=== PATIENT | female | born 1990 | race Caucasian/White ===

== ENCOUNTER 2016-05-20 06:18 | Inpatient (IN) ==
[2016-05-20] MEDS ORDERED: PROPOFOL 1,000 MG/100 ML BOTTLE IV ONE (06:32)
[2016-05-20] MEDS: PROPOFOL 1,000 MG/100 ML BOTTLE IV SCH ×5 (06:40→21:15)
[2016-05-20 06:42] LABS: ABG Base Excess -0.7 MMOL/L (-2.5-2.5); ABG HCO3 23.9 MMOL/L (20-26); ABG Oxygen Saturation 99.8 % (95-100); ABG PCO2 38.3 MM HG (35-48); ABG PH 7.402 (7.35-7.45); ABG TCO2 20.9 MMOL/L (23-27)
--- NOTE | 2016-05-20 06:57 | XRay Report ---
Exam: XR chest 1V portable Date: 05/20/2016 6:32 AM Indication: Line placement Comparison: 05/20/2016 Findings: Nasogastric tube has been placed in the stomach. Endotracheal tube is at the level of the mid clavicle. Heart is normal in size. Minimal bibasilar atelectatic change present and tiny effusions. No pneumothorax. Mediastinum is unremarkable. Impression: 1. Interval placement endotracheal tube and nasogastric tube in good position 2. Minimal bibasilar atelectatic change and tiny effusions 3. No pneumothorax PROCEDURE INTERPRETED AT [facility] DEPARTMENT OF RADIOLOGY Final Report Signed by: Dr. Reji Montana
[2016-05-20] MEDS ORDERED: ONDANSETRON 4 MG/2 ML VIAL IV PRN (07:01)
--- NOTE | 2016-05-20 07:45 | Hospitalist History & Physical ---
Assessment and Plan - Time spent with patient Time spent with patient: Greater than 30 minutes (due to assessment, plan and documentation) (1) Suicide attempt by drug ingestion Status: Acute Assessment and plan: pt ingested ambien, robaxin, klonopin, and lexapro she was given narcan at OSH and came around Current Visit: Yes (2) Acute respiratory failure Status: Acute Assessment and plan: developed some snoring respirations, and was intubated for acute resp failure Current Visit: Yes (3) On mechanically assisted ventilation Status: Acute Assessment and plan: consulted Dr. Jose Marcus for vent mgmt cxr in AM Current Visit: Yes History of Present Illness Chief complaint: overdose on ambien. History of present illness: Ms. Sánchez is a 25 year old female who was sent from [facility] after having a fight with her boyfriend. She took almost an entire prescription of Ambien, Robaxin, Klonopin and Lexapro. She called EMS and was taken to [facility] where she was given Narcan and was then awake, alert and oriented. She began to have snoring respirations and was intubated there. [place] and NG have been placed and Poison Control was called at [place]. She is on diprivan at 50 mcg. Nurse in ER states that Ms. Sánchez recently required an increase in her sedation and restraints due to combative behavior. Her ET tube is in good position, ABG's: pH 7.402, pCO@ 38.3 pO2 339.0 HCO3 23.9. At this time, her pupils are pinpoint and non-reactive. She will not follow commands. I have ordered stat CBC, CMP. Reports are that her UDS at [place] was negative. I have not seen this. She will be admitted to the ICU, consult pulmonary for vent managment. Further plan and addendum to follow by Dr. Fannie Wu. Home Medications Medication Instructions Recorded Confirmed Type Ibuprofen Tab [Motrin Tab] 600 mg PO QID #30 tablet 12/16/15 Rx Methocarbamol Tab [Robaxin Tab] 750 mg PO TID #15 tablet 12/16/15 Rx Allergies Allergy/AdvReac Type Severity Reaction Status Date / Time promethazine [From Phenergan] Allergy RASH Verified 09/10/15 17:57 Medical,Surgical,& Family Hx - Medical History Psychological: History of: Psychiatric Problems (patient states that she is disabled because of PTSD from a "bad" childhood) Reproductive: History of: Complication - Surgical History Reproductive Surgeries: Surgical HX of;: Tubal Ligation - Family History Family History: Reports;: Family Cancer, Family Diabetes, Family Heart Disease, Family Hypertension - Social History Smoking Status: Current every day smoker Frequency of Alcohol Use: Unknown Type of Drug Use: Prescription Drug Abuse ROS unobtainable: due to endotracheal tube Exam - Constitutional Vitals: Period Temp Pulse Resp BP Sys/Paredes Pulse Ox Last 24 Hr 97.8 F-97.8 F 63-81 12-17 123-123/78-78 100 General appearance: normal weight, no acute distress - Head Head exam: Present: normal inspection, normocephalic - Eye Eye exam: Present: EOMI. Absent: scleral icterus Pupils: Present: MAGDA, normal accommodation - ENT ENT exam: Present: normal exam, normal oropharynx - Neck Neck exam: Present: normal inspection. Absent: lymphadenopathy - Respiratory Respiratory exam: Present: clear to auscultation bilaterally, other (sedated on vent). Absent: accessory muscle use - Cardiovascular Cardiovascular exam: Present: regular rate and rhythm. Absent: carotid bruit - GI/Abdominal GI/Abdominal exam: Present: normal bowel sounds, soft. Absent: tenderness - Extremities Exam Extremities exam: Present: normal inspection. Absent: edema - Back Exam Back exam: Present: normal inspection. Absent: muscle spasm - Neurological Exam Neurological exam: Present: other (sedated on vent) - Psychiatric Psychiatric exam: Present: other (sedated on vent after she tried to kill herself) - Skin Skin exam: Present: normal color, warm, dry, intact Results - EKG EKG results: sinus rhythm - Diagnostic Findings Procedure: Chest x-ray: report reviewed by me (interval placement ET and NG tube in good position, minimal bibasilar atelectatic change and tiny effusion, no ptx. )
--- NOTE | 2016-05-20 07:59 | Emergency Department Note ---
Kris Walsh Brittany, am scribing for, and in the presence of, Jing Foster MD 07:01. Cristian Walsh Leanne, MD, personally performed the services described in this documentation, ascribed by Maddy Ponce in my presence, and it is both accurate and complete 712 . Arrival - Arrival Mode of Arrival: Stretcher Limitations: Physical Limitation Source: EMS, Old Records Reviewed, RN Notes Reviewed - History of Present Illness HPI Narrative: This is a 25 y/o white female,who presents to the ED by EMS S/P drug overdose which happened about 0319 am. Pt took ambien, klonopin, robaxin, and lexapro. She was transported from [facility] after an intentionally drug overdose. Upon arrival, per EMS, pt's GCS was 13 and after a few minutes dropped down to 10. Per previous records with pt, her drug screen was negative and test was negative as well. No other complaints/pain in the ED at this time. Pt has a PMHx of psychiatric problems. Pt has had a tubal ligation. Pt has a family medical Hx of cancer, diabetes, heart disease, and HTN. Pt is a current every day smoker. Onset (ago): minute(s) ([employer]) Consistency: constant Severity: severe Allergies/Adverse Reactions: Allergies Allergy/AdvReac Type Severity Reaction Status Date / Time promethazine [From Phenergan] Allergy RASH Verified 09/10/15 17:57 Home Medications: Home Medications Medication Instructions Recorded Confirmed Type Ibuprofen Tab [Motrin Tab] 600 mg PO QID #30 tablet 12/16/15 Rx Methocarbamol Tab [Robaxin Tab] 750 mg PO TID #15 tablet 12/16/15 Rx Review of System - Review of System 12 point system: reviewed and no additional remarkable complaints except as stated - Review of System Psychiatric: Present: suicidal thoughts (Drug overdose) Medical,Surgical,& Family Hx - Medical History Psychological: History of: Psychiatric Problems (patient states that she is disabled because of PTSD from a "bad" childhood) Reproductive: History of: Complication - Surgical History Reproductive Surgeries: Surgical HX of;: Tubal Ligation - Family History Family History: Reports;: Family Cancer, Family Diabetes, Family Heart Disease, Family Hypertension - Social History Smoking Status: Current every day smoker Exam Vital Signs: Vital Signs Temperature 97.8 F 05/20/16 06:34 Pulse Rate 65 05/20/16 07:41 Respiratory Rate 18 05/20/16 07:41 Blood Pressure 127/86 05/20/16 07:41 O2 Sat by Pulse Oximetry 100 05/20/16 07:41 - General Exam limited due to: other (Pt is intubated) - Head Head exam: Present: atraumatic, normocephalic, normal inspection - Eye Eye exam: Present: normal appearance, PERRL, EOMI. Absent: nystagmus - ENT ENT exam: Present: normal exam, normal oropharynx, mucous membranes moist - Neck Neck exam: Present: normal inspection, full ROM, trachea midline. Absent: tenderness - Chest Chest inspection: Present: normal inspection. Absent: tenderness, rash, abscess - Respiratory Respiratory exam: Present: normal lung sounds bilaterally - Cardiovascular Cardiovascular exam: Present: regular rate, normal rhythm, normal heart sounds - Abdominal Exam Abdominal exam: Present: soft, normal bowel sounds. Absent: distention, tenderness, guarding, rebound, rigidity - Extremities Exam Extremities exam: Present: normal inspection, full ROM. Absent: tenderness, pedal edema, calf tenderness - Back Exam Back exam: Present: normal inspection, full ROM. Absent: tenderness, muscle spasm, rashes - Neurological Exam Neurological exam: Present: other (Intubated). Absent: motor sensory deficit - Psychiatric Psychiatric exam: Present: suicidal ideation (Drug overdose) - Skin Skin exam: Present: warm, dry, intact, normal color. Absent: cyanosis, diaphoresis, erythema, pallor, mottled - Other Other exam information: Pt is intubated, pt has multiple ecchymosises to the body Course - Reevaluation(s) Reevaluation #1: I have spoken with the hospital, [facility], and she will see the patient. Results - Labs Lab Results: I have reviewed the patients labs Labs: Laboratory Tests 05/20/16 06:39 ABG pO2 339.0 H ABG Total CO2 20.9 L - Diagnostic Findings Procedure: Chest x-ray: report reviewed by me (1. Interval placement endotracheal tube and nasogastric tube in good position. 2. Minimal bibasilar atelectatic change and tiny effusions. 3. No pneumothorax. ) Disposition Condition: Stable
[2016-05-20 09:17] LABS: Basophils # 0.1 10*3/uL (0.0-0.2); Basophils % 0.4 % (0.0-0.8); Eosinophils # 0.2 10*3/uL (0.0-0.87); Eosinophils % 1.2 % (0.00-10.9); Hematocrit 36.1 VOL% (35.7-47.0); Hemoglobin 12.1 GM/DL (12.0-16.0); Immature Granulocytes % 0.3 %; Immature Granulocytes Absolute 0.05 #; Lymphocytes # 2.2 10*3/uL (1.4-4.0); Lymphocytes % 15.3 % (21.3-54.2); Mean Corpuscular HGB Conc 33.5 GM/DL (32-36); Mean Corpuscular Hemoglobin 32 PG (27-34); Mean Platelet Volume 9.8 FL (9.6-12.0); Monocytes # 0.8 10*3/uL (0.11-0.8); Monocytes % 5.2 % (1.7-12.7); Neutrophils # 11.3 10*3/uL (1.4-7.4); Neutrophils % 77.6 % (38.7-73.9); Platelet Count 212 T/CUMM (130-400); Red Cell Distribution Width 11.9 % (9.3-17.3); White Blood Count 14.6 T/CUMM (4-12)
[2016-05-20 09:49] LABS: Albumin 3.6 G/DL (3.4-5.0); Bilirubin,Total 1.2 MG/DL (0.2-1.0); Osmolality,Calculated 288.6 MOS/KG (273-304); Potassium 3.6 MMOL/L (3.5-5.1); Total Protein 6.4 G/DL (6.4-8.3)
[2016-05-20] MEDS: PANTOPRAZOLE 40 MG VIAL IV SCH ×2 (10:02→21:14)
--- NOTE | 2016-05-20 10:40 | Pulmonology Consult Note ---
Assessment and Plan (1) Manic depressive illness Status: Acute Assessment and plan: Patient's parents report that she is manic depressive. Will need psychiatric evaluation. May be worthwhile to use Haldol so we can wean her off the propofol for vent weaning Current Visit: Yes (2) Suicide attempt by drug ingestion Status: Acute Assessment and plan: Apparently took Ambien Robaxin Klonopin and Lexapro. It was apparently intentional. Current Visit: Yes (3) Acute respiratory failure Status: Acute Assessment and plan: Patient currently on ventilator. Well oxygenated. Reduced FiO2. Start weaning as soon as we can get her off sedation. She apparently becomes combative when propofol is held. Current Visit: Yes (4) On mechanically assisted ventilation Status: Acute Assessment and plan: We will follow and wean as time allows. Current Visit: Yes History of Present Illness Chief complaint: Multidrug overdose History of present illness: Ms. Sánchez is a 25 year old female with a history of manic depressive illness. She apparently has some chronic back pain. She took an apparent intentional overdose of Ambien Robaxin Klonopin and Lexapro. She woke up at the [facility] after being given Narcan but then she developed decreased level of consciousness and it was felt that she was having difficulty maintaining her airway and she was intubated. I talked to her parents who relate no known history of heart or lung disease. I think she had some surgery related to a . She is said to have posttraumatic stress syndrome. She is a smoker. Home Medications Medication Instructions Recorded Confirmed Type Ibuprofen Tab [Motrin Tab] 600 mg PO QID #30 tablet 12/16/15 Rx Methocarbamol Tab [Robaxin Tab] 750 mg PO TID #15 tablet 12/16/15 Rx Allergies Allergy/AdvReac Type Severity Reaction Status Date / Time promethazine [From Phenergan] Allergy RASH Verified 09/10/15 17:57 ROS unobtainable: due to endotracheal tube Exam (Pulmonay) H&P - Constitutional Vitals: Period Temp Pulse Resp BP Sys/Paredes Pulse Ox Last 24 Hr 97.2 F 65-77 12-20 113-146/72-97 97-100 Exam: Patient is sedated and on the ventilator. Vital signs are normal. O2 sat 100% . Pupils react to light. Face symmetrical. Orotracheal tube in place. Neck supple. Chest clear equal breath sounds. Heart normal rate and rhythm no murmurs. Abdomen soft no masses. Extremities no clubbing cyanosis or edema. Medical,Surgical,& Family Hx - Medical History Psychological: History of: Psychiatric Problems (patient states that she is disabled because of PTSD from a "bad" childhood) Reproductive: History of: Complication - Surgical History Reproductive Surgeries: Surgical HX of;: Tubal Ligation - Family History Family History: Reports;: Family Cancer, Family Diabetes, Family Heart Disease, Family Hypertension - Social History Smoking Status: Current every day smoker Frequency of Alcohol Use: Unknown Type of Drug Use: Unknown, Prescription Drug Abuse Results - Labs CBC & BMP: 05/20/16 09:07 05/20/16 09:07 Lab Results: I have reviewed the past 24 hour labs - Diagnostic Findings Procedure: Chest x-ray: image reviewed by me (Endotracheal tube in good position. Minimal bibasilar atelectasis in both sides.)
[2016-05-20] MEDS ORDERED: HALOPERIDOL 5 MG/ML AMP IV ONE (12:10)
[2016-05-20] MEDS: SODIUM CHLORIDE 0.45% 1,000 ML IV SCH (16:44)
[2016-05-20] MEDS: LORazepam 2 MG/1 ML VIAL IV PRN ×3 (17:33→23:42)
[2016-05-20] MEDS: HALOPERIDOL 5 MG/ML AMP IV SCH (21:14)
[2016-05-21] MEDS: PROPOFOL 1,000 MG/100 ML BOTTLE IV SCH ×3 (01:48→06:30)
[2016-05-21 03:19] LABS: ABG Base Excess 0.9 MMOL/L (-2.5-2.5); ABG HCO3 25.7 MMOL/L (20-26); ABG Oxygen Saturation 98.8 % (95-100); ABG PCO2 41.8 MM HG (35-48); ABG PH 7.407 (7.35-7.45); ABG PO2 184.2 MM HG (80-95); Allen Test Positive; Pt O2 Delivery Device Ventilator
[2016-05-21 04:56] LABS: Basophils # 0.1 10*3/uL (0.0-0.2); Basophils % 0.5 % (0.0-0.8); Eosinophils # 0.2 10*3/uL (0.0-0.87); Eosinophils % 1.5 % (0.00-10.9); Hematocrit 34.8 VOL% (35.7-47.0); Hemoglobin 11.3 GM/DL (12.0-16.0); Immature Granulocytes % 0.4 %; Immature Granulocytes Absolute 0.04 #; Mean Corpuscular HGB Conc 32.5 GM/DL (32-36); Mean Corpuscular Hemoglobin 31 PG (27-34); Mean Corpuscular Volume 95.6 FL (87-102); Mean Platelet Volume 9.8 FL (9.6-12.0); Monocytes # 0.9 10*3/uL (0.11-0.8); Monocytes % 8.5 % (1.7-12.7); Neutrophils # 7.8 10*3/uL (1.4-7.4); Neutrophils % 71.1 % (38.7-73.9); Platelet Count 206 T/CUMM (130-400); Red Blood Count 3.64 MC/CUMM (3.8-5.5); Red Cell Distribution Width 11.9 % (9.3-17.3); White Blood Count 10.9 T/CUMM (4-12)
[2016-05-21] MEDS: SODIUM CHLORIDE 0.45% 1,000 ML IV SCH ×2 (05:13→21:38)
[2016-05-21 05:45] LABS: Calcium 7.9 MG/DL (8.5-10.1); Osmolality,Calculated 289.4 MOS/KG (273-304); Potassium 3.6 MMOL/L (3.5-5.1)
--- NOTE | 2016-05-21 06:24 | XRay Report ---
Exam: XR chest 1V portable Date: 05/21/2016 4:00 AM Indication: Follow-up ventilator respiratory failure Comparison: 05/20/2016 Technical: AP portable Findings: Endotracheal tube at the mid clavicle. Nasogastric tube traverses the esophagus. The heart is normal in size. Patchy alveolar infiltrate present in the right perihilar region. Slight blunting left costophrenic angle could represent tiny effusion. No pneumothorax. External cardiac leads are present. Impression: 1. Stable appearance of life support tubing 2. Patchy infiltrate right perihilar region and tiny left base effusion PROCEDURE INTERPRETED AT [facility] DEPARTMENT OF RADIOLOGY Final Report Signed by: Dr. Reji Montana
--- NOTE | 2016-05-21 07:30 | Pulmonology Progress Note ---
Pulmonary - PN: Subj Interval history: This 25-year-old white female apparently took a multidrug overdose. She has a history according to her parents of bipolar disorder. She was getting quite combative when propofol was held yesterday. We started her on Haldol. We will hold propofol this morning and hopefully can get her weaned. She has a small left pleural effusion and minimal bibasilar infiltrates on x-ray. Exam (Progress Note) - Constitutional Vitals: Period Temp Pulse Resp BP Sys/Paredes Pulse Ox Last 24 Hr 97.1 F-99.8 F 65-89 10-24 107-146/60-89 97-100 Exam: Patient responds to painful stimulus and will follow with her eyes when her name is called. Vital signs normal. Pupils react to light. Orotracheal tube in place. Neck supple no bruits. Chest sounds clear equal breath sounds. Heart normal rate and rhythm no murmurs no rubs no gallops. Abdomen soft nontender no masses. Bowel sounds present. Extremities no clubbing cyanosis or edema. Patient moving all 4 extremities spontaneously. Results - Labs CBC & BMP: 05/21/16 04:34 05/21/16 04:34 Lab Results: I have reviewed the past 24 hour labs - Diagnostic Findings Procedure: Chest x-ray: image reviewed by me (ET tube good position. Minimal right basilar infiltrate. Small left pleural effusion probably.) Assessment and Plan (1) Manic depressive illness Status: Acute Assessment and plan: Patient's parents report that she is manic depressive. Will need psychiatric evaluation. May be worthwhile to use Haldol so we can wean her off the propofol for vent weaning 05/21/2016 started on Haldol to help with weaning. Current Visit: Yes (2) Suicide attempt by drug ingestion Status: Acute Assessment and plan: Apparently took Ambien Robaxin Klonopin and Lexapro. It was apparently intentional. 05/21/2016 multidrug overdose. Will need psychiatric evaluation once she is able to interact with the psychiatrist. Current Visit: Yes (3) Acute respiratory failure Status: Acute Assessment and plan: Patient currently on ventilator. Well oxygenated. Reduced FiO2. Start weaning as soon as we can get her off sedation. She apparently becomes combative when propofol is held. 05/21/2016 ABGs look good. Expect to wean her today Current Visit: Yes (4) On mechanically assisted ventilation Status: Acute Assessment and plan: We will follow and wean as time allows. Current Visit: Yes
[2016-05-21] MEDS: HALOPERIDOL 5 MG/ML AMP IV SCH ×2 (08:28→21:39)
[2016-05-21] MEDS: PANTOPRAZOLE 40 MG VIAL IV SCH ×2 (08:28→21:39)
--- NOTE | 2016-05-21 10:02 | Hospitalist Progress Note ---
Assessment and Plan - Time spent with patient Time spent with patient: Greater than 30 minutes (1) Acute respiratory failure Status: Acute Assessment and plan: On the vent. Current Visit: Yes (2) Suicide attempt by drug ingestion Status: Acute Assessment and plan: [place] has been asked to see the patient once off the vent. Current Visit: Yes Hospitalist: Subjective Interval history: No complaints, no overnight events. Exam - Constitutional Vitals: Period Temp Pulse Resp BP Sys/Paredes Pulse Ox Last 24 Hr 97.1 F-99.8 F 65-89 10-24 107-144/60-80 97-100 General appearance: no acute distress - Head Head exam: Present: normocephalic, atraumatic - ENT ENT exam: Present: other (ET tube) - Neck Neck exam: Present: normal inspection - Respiratory Respiratory exam: Present: clear to auscultation bilaterally. Absent: rhonchi, wheezes - Cardiovascular Cardiovascular exam: Present: regular rate and rhythm. Absent: gallop, rubs, systolic murmur - GI/Abdominal GI/Abdominal exam: Present: normal bowel sounds, soft. Absent: distended, firm , guarding, tenderness, rebound - Extremities Exam Extremities exam: Present: normal inspection. Absent: calf tenderness, edema Results - Labs CBC & BMP: 05/21/16 04:34 05/21/16 04:34 Lab Results: I have reviewed the past 24 hour labs
[2016-05-21 10:27] LABS: Allen Test Positive; Pt O2 Delivery Device Ventilator
[2016-05-21 10:28] LABS: ABG Base Excess 0.8 MMOL/L (-2.5-2.5); ABG HCO3 25.2 MMOL/L (20-26); ABG Oxygen Saturation 98.7 % (95-100); ABG PCO2 44.4 MM HG (35-48); ABG TCO2 23.4 MMOL/L (23-27)
[2016-05-21 13:53] LABS: ABG Base Excess 1.1 MMOL/L (-2.5-2.5); ABG HCO3 25.4 MMOL/L (20-26); ABG Oxygen Saturation 98.3 % (95-100); ABG PCO2 39.1 MM HG (35-48); ABG PO2 130.6 MM HG (80-95); ABG TCO2 26.6 MMOL/L (23-27)
[2016-05-22 03:19] LABS: ABG Base Excess -1.9 MMOL/L (-2.5-2.5); ABG HCO3 22.7 MMOL/L (20-26); ABG Oxygen Saturation 93.9 % (95-100); ABG PCO2 39.3 MM HG (35-48); ABG PH 7.376 (7.35-7.45); ABG PO2 71.2 MM HG (80-95); ABG TCO2 20.6 MMOL/L (23-27); Allen Test Positive
--- NOTE | 2016-05-22 07:28 | Pulmonology Progress Note ---
Pulmonary - PN: Subj Interval history: This 25-year-old white female apparently took a multidrug overdose. She has a history according to her parents of bipolar disorder. She was getting quite combative when propofol was held yesterday. We started her on Haldol. We will hold propofol this morning and hopefully can get her weaned. She has a small left pleural effusion and minimal bibasilar infiltrates on x-ray. 05/22/2016 we were able to get patient extubated yesterday. Her room air oxygen saturation is in the high 90s. It appears that she is wanting to be discharged AGAINST MEDICAL ADVICE. Defer to primary service. She needs to be held for psychiatric evaluation I would think. I will sign off from a pulmonary standpoint Exam (Progress Note) - Constitutional Vitals: Period Temp Pulse Resp BP Sys/Paredes Pulse Ox Last 24 Hr 98.2 F-99.4 F 74-99 12-26 95-131/46-80 92-100 Exam: Patient is alert and responsive. Asking about leaving AGAINST MEDICAL ADVICE. Vital signs normal. Pupils react to light. Neck supple no bruits. Chest sounds clear equal breath sounds. Heart normal rate and rhythm no murmurs no rubs no gallops. Abdomen soft nontender no masses. Bowel sounds present. Extremities no clubbing cyanosis or edema. Patient moving all 4 extremities spontaneously. Results - Labs CBC & BMP: 05/21/16 04:34 05/21/16 04:34 Lab Results: I have reviewed the past 24 hour labs Assessment and Plan (1) Manic depressive illness Status: Acute Assessment and plan: Patient's parents report that she is manic depressive. Will need psychiatric evaluation. May be worthwhile to use Haldol so we can wean her off the propofol for vent weaning 05/21/2016 started on Haldol to help with weaning. 05/22/2016 defer to primary service. Need psychiatric evaluation. Current Visit: Yes (2) Suicide attempt by drug ingestion Status: Acute Assessment and plan: Apparently took Ambien Robaxin Klonopin and Lexapro. It was apparently intentional. 05/21/2016 multidrug overdose. Will need psychiatric evaluation once she is able to interact with the psychiatrist. 05/22/2016 has been extubated. Again needs psychiatric evaluation Current Visit: Yes (3) Acute respiratory failure Status: Acute Assessment and plan: Patient currently on ventilator. Well oxygenated. Reduced FiO2. Start weaning as soon as we can get her off sedation. She apparently becomes combative when propofol is held. 05/21/2016 ABGs look good. Expect to wean her today 05/22/2016 she is been extubated and looks good. Respiratory failure has resolved. I will sign off. Current Visit: Yes (4) On mechanically assisted ventilation Status: Resolved Assessment and plan: We will follow and wean as time allows. Current Visit: Yes
[2016-05-22] MEDS: HALOPERIDOL 5 MG/ML AMP IV SCH (08:28)
[2016-05-22] MEDS: SODIUM CHLORIDE 0.45% 1,000 ML IV SCH (08:28)
[2016-05-22] MEDS: PANTOPRAZOLE 40 MG VIAL IV SCH (08:29)
--- NOTE | 2016-05-22 13:54 | Discharge Summary ---
Discharge Plan - Discharge Medications No Action Ibuprofen Tab [Motrin Tab] 600 mg PO QID #30 tablet Methocarbamol Tab [Robaxin Tab] 750 mg PO TID #15 tablet Escitalopram [Lexapro] 10 mg PO DAILY clonazePAM [Clonazepam] 0.5 mg PO BEDTIME - Follow Up or Referral - Forms/Instructions Exam - Constitutional Vitals: Period Temp Pulse Resp BP Sys/Paredes Pulse Ox Last 24 Hr 98.5 F-99.4 F 73-99 12-26 95-123/46-78 92-100 Discharge Results Procedures and tests throughout hospitalization: Pending Orders 05/23/16 04:00 Arterial Blood Gas IN AM Labs on day of discharge: Labs from last 24 hours 05/22/16 05/21/16 03:00 13:50 ABG pH 7.376 7.430 ABG pCO2 39.3 39.1 ABG pO2 71.2 L 130.6 H ABG HCO3 22.7 25.4 ABG Total CO2 20.6 L 26.6 ABG O2 Saturation 93.9 L 98.3 ABG Base Excess -1.9 1.1 FiO2 32.00 DS: Provider Date of admission: 05/20/16 07:02 05/20/16 Primary care physician: . No PCP Attending physician on admission: Shayla Dickson MD Consults: 05/20/16 09:54 Consult to Pharmacy [CONS] Routine Reason for Pharmacy Consult: Adjust Meds Renal Funct 05/20/16 15:09 Consult to Case Mgmt/Social Srvs [CONS] Routine Reason for Case Mgmt/Social Srvs: Psychiatric Management Consult Comment: suicide attempt Discharging clinician: Nuzhat Echols MD Expected date of discharge: 05/22/16
--- NOTE | 2016-05-22 14:05 | Discharge Summary ---
Hospital Course - Hospital Course Hospital Course: 25 y/o WF with history of depression admitted with suicide attempt by drug ingestion. She reported taking ambien, robuxin, klonopin and Lexapro. She was given Narcan at [facility] with initial improvement in symptoms. In the ED patient was intubated for airway protection given concern for snoring respiration. She did well and was extubated yesterday. Patient has agreed to be admitted to [facility] for a psychiatry evaluation. She is medically stable and will be discharged today. - Time spent with patient Time with patient DS: Less than 30 minutes Diagnosis - Discharge Diagnosis (1) Acute respiratory failure Status: Resolved (2) Manic depressive illness Status: Chronic (3) Suicide attempt by drug ingestion Status: Resolved Discharge Plan - Discharge Data Disposition: Disch/Xfer to Psych Hos Condition at Discharge: Stable Discharge Diet: regular diet Activity: resume usual activities as tolerated Hygiene: no restrictions Weight Bearing at Discharge: full weight bearing Driving: not until seen by doctor Contact your physician if you experience:: fever over 101, Shortness of breath - Discharge Medications Continue Ibuprofen Tab [Motrin Tab] 600 mg PO QID #30 tablet Methocarbamol Tab [Robaxin Tab] 750 mg PO TID #15 tablet Escitalopram [Lexapro] 10 mg PO DAILY clonazePAM [Clonazepam] 0.5 mg PO BEDTIME - Follow Up or Referral - Forms/Instructions Exam - Constitutional Vitals: Period Temp Pulse Resp BP Sys/Paredes Pulse Ox Last 24 Hr 98.5 F-99.4 F 73-99 12-26 95-123/46-78 92-98 General appearance: normal weight, no acute distress - Head Head exam: Present: normocephalic, atraumatic - Eye Eye exam: Present: EOMI Pupils: Present: MAGDA. Absent: constricted, dilated - ENT ENT exam: Present: normal exam, normal oropharynx - Neck Neck exam: Present: normal inspection. Absent: lymphadenopathy, tenderness - Respiratory Respiratory exam: Present: clear to auscultation bilaterally. Absent: decreased breath sounds, rales, rhonchi - Cardiovascular Cardiovascular exam: Present: regular rate and rhythm - GI/Abdominal GI/Abdominal exam: Present: normal bowel sounds, soft. Absent: distended, tenderness - Extremities Exam Extremities exam: Present: normal inspection, full ROM - Back Exam Back exam: Present: normal inspection - Neurological Exam Neurological exam: Present: alert, oriented X3 - Psychiatric Psychiatric exam: Present: anxious, depressed - Skin Skin exam: Present: normal color, warm Discharge Results Procedures and tests throughout hospitalization: Pending Orders 05/23/16 04:00 Arterial Blood Gas IN AM Labs on day of discharge: Labs from last 24 hours 05/22/16 03:00 ABG pH 7.376 ABG pCO2 39.3 ABG pO2 71.2 L ABG HCO3 22.7 ABG Total CO2 20.6 L ABG O2 Saturation 93.9 L ABG Base Excess -1.9 FiO2 32.00 DS: Provider Date of admission: 05/20/16 07:02 Primary care physician: . No PCP Attending physician on admission: Shayla Dickson MD Consults: 05/20/16 09:54 Consult to Pharmacy [CONS] Routine Reason for Pharmacy Consult: Adjust Meds Renal Funct 05/20/16 15:09 Consult to Case Mgmt/Social Srvs [CONS] Routine Reason for Case Mgmt/Social Srvs: Psychiatric Management Consult Comment: suicide attempt Discharging clinician: Nuzhat Echols MD
[2016-05-22 17:56] VITALS: BP 121/75
[2016-05-22] MEDS ORDERED: NICOTINE 14 MG/24 HR PATCH TRANSDERM PRN (17:58)
== END 2016-05-22 19:08 | DRG 918 ==
LOC: N.ED 06:18 → N.EDINP 07:01 → SUATTDRO 07:02 → N.CC 08:20
PROVIDERS: ADMIT Internal Medicine; ATTEND Internal Medicine

== ENCOUNTER 2021-06-07 01:38 | Observation (INO) ==
[2021-06-07] MEDS ORDERED: SODIUM CHLORIDE 0.9% 1,000 ML IV STA (01:53)
[2021-06-07] MEDS ORDERED: MORPHINE 4 MG/1 ML VIAL IV STA (01:53)
[2021-06-07] MEDS ORDERED: ONDANSETRON 4 MG/2 ML VIAL IV STA (01:53)
[2021-06-07 02:14] LABS: Basophils % 0.1 % (0.0-0.8); Eosinophils # 0.1 10*3/uL (0.0-0.87); Eosinophils % 0.8 % (0.00-10.9); Hematocrit 47.6 VOL% (35.7-47.0); Hemoglobin 15.8 GM/DL (12.0-16.0); Immature Granulocytes % 0.6 %; Lymphocytes # 2.2 10*3/uL (1.4-4.0); Lymphocytes % 13.5 % (21.3-54.2); Mean Corpuscular HGB Conc 33.2 GM/DL (32-36); Mean Corpuscular Volume 93.3 FL (87-102); Mean Platelet Volume 9.1 FL (9.6-12.0); Monocytes % 5.9 % (1.7-12.7); Neutrophils % 79.1 % (38.7-73.9); Platelet Count 323 T/CUMM (130-400); Red Cell Distribution Width 11.7 % (9.3-17.3); White Blood Count 16.1 T/CUMM (4-12)
[2021-06-07 02:38] LABS: Albumin 4.2 G/DL (3.4-5.0); Bilirubin,Total 0.5 MG/DL (0.20-1.00); Osmolality,Calculated 276.8 MOS/KG (273-304); Potassium 3.7 MMOL/L (3.5-5.1); Total Protein 9.2 G/DL (6.4-8.2)
[2021-06-07 02:39] LABS: Eosinophils 1 % (0-10); Lymphocytes 13 % (20-55); Platelet Estimate Adequate; Segmented Neutrophils 80 % (50-85); Total Cells Counted 100
[2021-06-07] MEDS ORDERED: PIPERACILLIN/TAZOBACTAM 3,375 MG in SODIUM CHLORIDE 0.9% 100 ML IV STA (03:41)
[2021-06-07] MEDS ORDERED: MORPHINE 4 MG/1 ML VIAL IV PRN (03:45)
[2021-06-07] MEDS ORDERED: hydrALAZINE 20 MG/1 ML VIAL IV PRN (03:45)
[2021-06-07] MEDS ORDERED: ONDANSETRON 4 MG/2 ML VIAL IV PRN (03:45)
[2021-06-07] MEDS ORDERED: DEXTROSE 5% NACL 0.45% 1,000 ML IV SCH (04:00)
[2021-06-07] MEDS ORDERED: PANTOPRAZOLE 40 MG VIAL IV SCH (09:00)
[2021-06-07] MEDS ORDERED: PIPERACILLIN/TAZOBACTAM 3,375 MG in SODIUM CHLORIDE 0.9% 100 ML IV SCH (12:00)
[2021-06-07 14:49] VITALS: BP 135/97
== END 2021-06-07 14:47 | disposition home or self-care (01) ==
LOC: N.ED 01:38 → N.EDINP 01:38
PROVIDERS: ADMIT Surgery; ATTEND Surgery